=== PATIENT | female | born 1990 | race African-American/Black ===

== ENCOUNTER 2019-11-11 11:08 | Emergency (ER) | payer MEDICAID ==
[~2019-11-11] VITALS: Ht 177.8 cm; Wt 67.1 kg
[2019-11-11 11:16] VITALS: BP 153/99; Ht 177.8 cm; Wt 67.1 kg
== END 2019-11-11 13:08 | disposition home or self-care (01) ==
LOC: ED 11:08
DX: K04.7 Periapical abscess without sinus (principal)